=== PATIENT | male | born 1985 | race Two or more races ===

== ENCOUNTER 2021-11-13 19:48 | Emergency (ER) | payer SELFPAY ==
[~2021-11-13] VITALS: Ht 177.8 cm; Wt 90.7 kg
[2021-11-13 19:56] VITALS: BP 90/60
== END 2021-11-13 19:55 | disposition short-term general hospital (02) ==
LOC: EDBD 19:48 → ER 19:48
DX: S27.9XXA Injury of unspecified intrathoracic organ, initial encounter (principal); S27.309A Unspecified injury of lung, unspecified, initial encounter; V09.9XXA Pedestrian injured in unspecified transport accident, initial encounter; Y93.89 Activity, other specified; Y92.89 Other specified places as the place of occurrence of the external cause; Y99.8 Other external cause status
CPT/HCPCS: 31500; 99291